=== PATIENT | male | born 1965 | race Caucasian/White ===

== ENCOUNTER 2019-12-03 06:14 | Outpatient (CLI) | payer OTHER, SELFPAY ==
[2019-12-03 18:35] LABS: SARS-CoV-2 RNA PCR Negative
== END 2019-12-03 06:15 | disposition home or self-care (01) ==
LOC: ANHCOVIDDT 06:15
PROVIDERS: PCP Internal Medicine; Visit Provider Internal Medicine Gastroenterology
DX: Z01.818 Encounter for other preprocedural examination (principal); Z11.59 Encounter for screening for other viral diseases
CPT/HCPCS: 87635; C9803; U0003

== ENCOUNTER 2019-12-05 02:39 | Day surgery (SDC) | payer OTHER, SELFPAY ==
[2019-12-02 10:06] VITALS: BMI 27.6
[2019-12-05 07:07] VITALS: BP 102/73; PULSE 95; RESP 20; TEMP 36.6; O2SAT 99
[2019-12-05] MEDS: LACTATED RINGERS 1,000 ML 150 ML IV CONT (07:18)
--- NOTE | 2019-12-05 07:45 | WPDANESEPPF ---
Anes - Initial Pre Proc Eval Procedure: Operation Date: 12/05/19 08:00 Proposed Procedures p Screening Colonoscopy - Omer Barron DO Date/Time: 12/05/19 07:45 Surgeon: Omer Barron DO Pre Op Diagnosis: Neoplasm Screening Patient Data Age: 54 Gender: M Height: 5 ft 9 in Weight: 27.6 kg Last Vital Signs Temp 36.6 C 12/05/19 07:07 Pulse 95 12/05/19 07:07 Resp 20 12/05/19 07:07 BP 102/73 12/05/19 07:07 Pulse Ox 99 12/05/19 07:07 Allergies Allergy/AdvReac Type Severity Reaction Status Date / Time No Known Allergies Allergy Verified 12/05/19 07:05 Home Medications Medication Instructions Recorded Confirmed Type olmesartan 20 mg tablet 20 mg PO DAILY 11/20/19 12/05/19 History famotidine 20 mg PO DAILY 12/02/19 12/05/19 History lorazepam 1 mg PO DAILY 12/02/19 12/05/19 History Patient hx anesthesia problems: none Family hx anesthesia problems: none [facility] Past Medical History Medical History (Updated 12/05/19 @ 07:46 by Dario Page MD) GERD (gastroesophageal reflux disease) HTN (hypertension) Obesity Social History Social History Smoking status: Current every day smoker Tobacco type: cigarettes Alcohol intake: current Substance use: never Anes - Eval Final PreProcedure Day of Procedure 12/05/19 07:45 Patient weight: obese Heart: regular rate and rhythm Lungs: clear to auscultation Airway: Mallampati scale class II Neurological: alert and oriented Last oral intake: >/= 8 hours ASA classification: II Emergent: no Anesthetic plan: proceed Anesthesia type and monitoring: general GIVS and standard monitoring Informed Consent: The patient's anesthetic plan and its attendant risks and benefits were discussed with the patient/family/POA. Questions were solicited and answers provided to the satisfaction of the patient/family/POA.
--- NOTE | 2019-12-05 08:31 | PM.IMHP ---
H&P: HPI History of Present Illness Chief complaint: Neoplasm Screening Narrative: Reason for visit colonoscopy. Impression: Screening colonoscopy. Hypertension. Hyperlipidemia. Tobacco abuse. Recommendation: Colonoscopy. History: This very pleasant gentleman is here for screening colonoscopy. His GI review systems negative. This is his 1st colonoscopy. General: very pleasant patient in no acute distress. HEENT: Head was normocephalic sclerae is clear mouth without masses neck was supple. Heart: Rate rhythm regular without S3 or S4. Lungs: CTA. Abdomen: Soft with no guarding or rigidity. Bowel sounds were active. Neurologic: Cranial nerves 2 through 12 intact. No focal defects. No clonus. Musculoskeletal system: Revealed no joint tenderness or swelling no muscle atrophy. Extremities: Reveal no significant edema. Skin: Warm and dry with normal turgor. Mental status: intact. Patient is alert and oriented. Review of Systems Review of Systems: All systems reviewed & are unremarkable except as noted in HPI and below PMFSH Past Medical History Medical History (Updated 12/05/19 @ 08:31 by Omer Barron DO) GERD (gastroesophageal reflux disease) HLD (hyperlipidemia) HTN (hypertension) Obesity Tobacco abuse Surgical History Surgical History (Updated 12/05/19 @ 08:31 by Omer Barron DO) H/O rhinoplasty Social History Social History Smoking status: Current every day smoker Tobacco type: cigarettes Alcohol intake: current Substance use: never Meds Home Medications and Allergies Home Medications Medication Instructions Recorded Confirmed Type olmesartan 20 mg tablet 20 mg PO DAILY 11/20/19 12/05/19 History famotidine 20 mg PO DAILY 12/02/19 12/05/19 History lorazepam 1 mg PO DAILY 12/02/19 12/05/19 History Allergies Allergy/AdvReac Type Severity Reaction Status Date / Time No Known Allergies Allergy Verified 12/05/19 07:05 Vital Signs Vital Signs - 24 hr 12/05/19 07:07 Temperature 36.6 C Pulse Rate 95 Respiratory Rate 20 Blood Pressure 102/73 Pulse Oximetry 99
[2019-12-05 09:00] VITALS: BP 71/54; PULSE 88; RESP 18; O2SAT 94
[2019-12-05 09:10] VITALS: BP 97/73; PULSE 79; RESP 13; O2SAT 96
[2019-12-05 09:20] VITALS: BP 101/72; PULSE 68; RESP 18; O2SAT 99
== END 2019-12-05 09:27 | disposition home or self-care (01) ==
PROVIDERS: PCP Internal Medicine; Visit Provider Internal Medicine Gastroenterology
PROC: 0DJD8ZZ Inspection of Lower Intestinal Tract, Via Natural or Artificial Opening Endoscopic (ICD-10-PCS; CPT 45378; principal; 2019-12-05 08:00)
DX: Z12.11 Encounter for screening for malignant neoplasm of colon (principal); D12.2 Benign neoplasm of ascending colon; D12.4 Benign neoplasm of descending colon; I10 Essential (primary) hypertension; K21.9 Gastro-esophageal reflux disease without esophagitis; F17.210 Nicotine dependence, cigarettes, uncomplicated; E66.9 Obesity, unspecified; Z68.28 Body mass index [BMI] 28.0-28.9, adult
CPT/HCPCS: 45380; 45385; 88305; J2704; J7120